=== PATIENT | male | born 1995 | race African-American/Black ===

== ENCOUNTER 2016-06-05 01:18 | Emergency (ER) | payer BC ==
[~2016-06-05] VITALS: Ht 177.8 cm; Wt 86.5 kg
[~2016-06-05 01:18] MED LIST: ONDA4TAB35 PO
[2016-06-05 01:26] VITALS: Ht 177.8 cm; Wt 86.5 kg
--- NOTE | 2016-06-05 03:48 | RADRPT ---
PROCEDURE: Chest. CLINICAL INDICATION: Chest pain. TECHNIQUE: Single frontal view of the chest was obtained. COMPARISON: 11/20/2013. FINDINGS: The cardiac silhouette is within normal limits. The aortic arch is unremarkable. There is no focal consolidation, vascular congestion or pleural effusion. There is no pneumothorax. IMPRESSION: No evidence for active cardiopulmonary disease. .Irving Car MD, Date Time Electronically viewed and signed by .Irving Car MD, on 06/05/2016 03:48 .T/
[2016-06-05 03:52] VITALS: BP 121/68
--- NOTE | 2016-06-05 08:00 | ERD ---
ER Documentation Chief Complaint Date/Time DATE: 06/05/16 TIME: 07:49 Chief Complaint 1 episode of seizure HPI 20 year old male presenting with mother and father with chief complaint of possible seizure today. He states that about 2 months ago he was hospitalized in an inpatient psychiatroc hospital and was placed on multiple psychiatric medications after which he had one seizure. He had a subsequent recent EEG that was normal. Today, he woke up after taking Seroquel 300mg, which was increased from 150mg 2 days prior. He walked over to his desk to get something and felt "woozy", generally weak and "passed out" onto his desk. He woke up an unknown amount of time afterwards shivering and called for his sister to come to the room. He remembered everything that had happened. There was no postictal period , urine incontinence, or tongue biting. Family is concerned he had a seizure. Currently he denies any chest pain, dizziness, headache, vision disturbance, N/V , F/C, or sob. ROS All systems reviewed and are negative except as per history of present illness. Medications Home Meds Active Scripts Ondansetron Hcl* (Zofran* ODT) 4 mg -ODT Tab.disper, 4 MG PO Q6 Y for NAUSEA AND /OR VOMITING, #10 TAB Prov:LINDA CORTES PA-C 12/13/14 Allergies Allergies: Coded Allergies: No Known Allergy (Unverified , 11/20/13) PMhx/Soc History of Surgery: No Anesthesia Reaction: No Hx Neurological Disorder: Yes (one seizure in past) Hx Respiratory Disorders: No Hx Cardiac Disorders: No Hx Psychiatric Problems: Yes (Depression, anxiety) Hx Alcohol Use: No Hx Substance Use: Yes (marijuana use in past) Hx Tobacco Use: Yes Smoking Status: Current some day smoker FmHx Family History: No coronary disease, No diabetes, No other (no sudden ) Physical Exam Vitals Vital Signs Date Time Temp Pulse Resp B/P Pulse Ox O2 Delivery O2 Flow Rate FiO2 06/05/16 03:52 98.3 82 17 121/68 98 Room Air 06/05/16 02:08 98.3 88 17 112/65 98 Room Air 06/05/16 01:26 98.3 101 20 112/68 98 Physical Exam Const: no apparent distress, nontoxic Head: Atraumatic Eyes: Normal Conjunctiva, PERRL, EOMI, no nystagmus ENT: Normal External Ears, Nose and Mouth. Neck: Full range of motion.No meningismus. Resp: Clear to auscultation bilaterally Cardio: Regular rate and rhythm, no murmurs. 2+ distal pulses Abd: Soft, non tender, non distended. Normal bowel sounds Skin: No petechiae or rashes Back: No midline or flank tenderness Ext: No cyanosis, or edema Neur: Awake, alert, oriented x 3, cranial nerves intact, gait normal, strength and sensations intact in all 4 extremities Psych: Normal Mood and Affect Procedures/MDM EKG: NSR, intervals normal, no QT prolongation, evidence of HOCM, no Brugada. NO arrhythmias. No ischemic changes. CXR: No evidence for active cardiopulmonary disease. The patients vitals are within normal limits. The ECG did not show any concerning abnormalities. I have a low suspicion for an arrhythmia, acute coronary syndrome, dissection, PE, ischemic CVA or intracranial hemorrhage. Etiology for syncope is unknown but likely benign. I suspect is medication related as patient took a large dose of Seroquel 1 hour before incident then rapidly stood up. I do not suspect this was a seizure. Patient's syncopal symptoms have stabilized while in the department and are suitable for outpatient follow up. I advised follow up with primary care physician in 1-2 days. Return precautions were discussed at bedside. Departure Diagnosis: Primary Impression: Syncope Syncope type: vasovagal syncope Qualified Code: R55 - Vasovagal syncope Condition: Stable Patient Instructions: Causes of Syncope Additional Instructions: See your primary care doctor tomorrow for a follow up visit. Return for any worsening symptoms. KRUNAL ZAPIEN MD Jun 05, 2016 07:59
== END 2016-06-05 03:53 | disposition home or self-care (01) ==
LOC: E/R 01:18
DX: R55 Syncope and collapse (principal); F17.210 Nicotine dependence, cigarettes, uncomplicated
CPT/HCPCS: 71010; 93005